=== PATIENT | male | born 1985 | race Caucasian/White ===

== ENCOUNTER 2016-12-16 18:20 | Emergency (ER) | payer OTHER ==
[~2016-12-16] VITALS: Ht 190.5 cm; Wt 109.0 kg
[2016-12-16 18:22] VITALS: BP 136/86
== END 2016-12-16 19:05 | disposition home or self-care (01) ==
LOC: ER 19:04
DX: R04.0 Epistaxis (principal); R51 Headache; Z88.2 Allergy status to sulfonamides; Y04.0XXA Assault by unarmed brawl or fight, initial encounter; Y93.89 Activity, other specified; Y92.239 Unspecified place in hospital as the place of occurrence of the external cause; Y99.8 Other external cause status
CPT/HCPCS: 99283